=== PATIENT | male | born 1975 | race Caucasian/White ===

== ENCOUNTER 2021-10-14 19:42 | Emergency (ER) | payer BC ==
--- NOTE | 2021-10-14 20:00 | ERPHSYRPT ---
- History of Present Illness Time Seen by Provider: 10/14/21 20:00 Source: patient Exam Limitations: no limitations Physician History: This is a 46-year-old white male patient of Dr. Rios Ramsay who has a history of hypertension on amlodipine and metoprolol which he takes at night and presents with some mild dizziness and mild headache. He also, in the last few days has had intermittent fevers myalgias and arthralgias. He has had no vomiting and no diarrhea. He has no known exposure to anyone with viral illnesses. He last took daytime Tylenol combination cold and flu medications in approximately 3 PM. He presents with a fever of 99.9 F. Timing/Duration: day(s) (3) Quality: aching Head Pain Location: global Severity of Pain-Max: moderate Severity of Pain-Current: mild Recent Head Trauma: no recent headache/trauma Associated Symptoms: dizziness (Mild), fever/chills, No nausea/vomiting, No neck pain, No seizures, No sensitive to light, No stiff neck, No trouble walking, No visual disturbance Previous symptoms: no prior history Allergies/Adverse Reactions: No Known Drug Allergies Allergy (Unverified 10/14/21 19:49) Travel Risk - International Travel Have you traveled outside of the country in past 3 weeks: No - Coronavirus Screening Are you exhibiting any of the following symptoms?: Yes Symptoms: Fever, Headaches/Body Aches/Fatigue Close contact with a COVID-19 positive Pt in past 14-21 Days: No - Review of Systems Constitutional: Fever, Weakness Eyes: No Symptoms Ears, Nose, & Throat: No Symptoms Respiratory: No Symptoms Cardiac: No Symptoms Abdominal/Gastrointestinal: No Symptoms Genitourinary Symptoms: No Symptoms Musculoskeletal: Arthralgias, Myalgias Skin: No Symptoms Neurological: Headache Psychological: No Symptoms Endocrine: No Symptoms Hematologic/Lymphatic: No Symptoms Immunological/Allergic: No Symptoms All Other Systems: Reviewed and Negative - Past Medical History Pertinent Past Medical History: Yes - Past Surgical History Past Surgical History: Yes - Nursing Vital Signs Nursing Vital Signs: Initial Vital Signs Temperature 99.9 F 10/14/21 19:50 Pulse Rate 126 H 10/14/21 19:50 Respiratory Rate 18 10/14/21 19:50 Blood Pressure 165/96 10/14/21 19:50 O2 Sat by Pulse Oximetry 97 10/14/21 19:50 Pain Scale Pain Intensity 5 - Physical Exam General Appearance: no apparent distress, alert, anxiety, obese Eye Exam: PERRL/EOMI, eyes nml inspection Ears, Nose, Throat Exam: normal ENT inspection, moist mucous membranes Neck Exam: normal inspection, non-tender, supple, full range of motion Respiratory Exam: normal breath sounds, lungs clear, airway intact, No chest tenderness, No respiratory distress Cardiovascular Exam: tachycardia Back Exam: normal inspection, normal range of motion, No CVA tenderness, No vertebral tenderness Extremity Exam: normal inspection, normal range of motion, pelvis stable Mental Status Exam: alert, 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 There is no acute ischemic changes on today's EKG.) Ordered Tests: Active Orders 24 hr Category Date Time Status Director Of Property Management STAT Care 10/14/21 20:10 Active EKG-ER Only STAT Care 10/14/21 20:09 Active IV Insertion STAT Care 10/14/21 20:09 Active Isolation, Initiate & Maintain STAT Care 10/14/21 20:10 Active CHEST 1 VIEW (PORTABLE) Stat Exams 10/14/21 20:10 Completed CHEST WITH CONTRAST [CT] Stat Exams 10/14/21 21:14 Taken BLOOD CULTURE Stat Lab 10/14/21 20:42 Received CBC W DIFF Stat Lab 10/14/21 20:02 Completed CMP Stat Lab 10/14/21 20:02 Completed D-DIMER QUANTITATIVE Stat Lab 10/14/21 20:02 Completed Ferritin Stat Lab 10/14/21 19:42 Completed INFLUENZA A+B JAYNA Stat Lab 10/14/21 20:42 Completed LDH-LACTATE DEHYDROGENASE Stat Lab 10/14/21 20:02 Completed Lactic Acid Stat Lab 10/14/21 20:41 Completed Hardy Screen Stat Lab 10/14/21 20:02 Completed NT PRO BNP Stat Lab 10/14/21 20:02 Completed PROTIME WITH INR Stat Lab 10/14/21 20:02 Completed TROPONIN Q3H Lab 10/14/21 20:15 Completed TROPONIN Q3H Lab 10/14/21 23:15 Ordered TROPONIN Q3H Lab 10/15/21 02:15 Ordered TROPONIN Q3H Lab 10/15/21 05:15 Ordered TROPONIN Q3H Lab 10/15/21 08:15 Ordered Medication Summary Discontinued Medications Generic Name Dose Route Start Last Admin Trade Name Reena PRN Reason Stop Dose Admin Hydrocodone Bitart/Acetaminophen 10 ml 10/14/21 20:11 10/14/21 20:17 Hydrocodone/Acetaminophen 5 Ml Udcup PO 10/14/21 20:12 10 ml STAT STA Administration Hydrocodone Bitart/Acetaminophen Confirm 10/14/21 20:15 Hydrocodone/Acetaminophen 5 Ml Udcup Administered 10/14/21 20:16 Dose 10 ml .ROUTE .STK-MED ONE Sodium Chloride 1,000 mls @ 999 mls/hr 10/14/21 20:09 10/14/21 21:17 Sodium Chloride 0.9% 1000 Ml IV 10/14/21 21:09 Infused .Q1H1M STA Infusion Sodium Chloride Confirm 10/14/21 20:15 Sodium Chloride 0.9% 1000 Ml Administered 10/14/21 20:16 Dose 1,000 mls @ ud .ROUTE .STK-MED ONE Ibuprofen 600 mg 10/14/21 20:11 10/14/21 20:17 Ibuprofen 600 Mg Tablet PO 10/14/21 20:12 600 mg STAT ONE Administration Ibuprofen Confirm 10/14/21 20:15 Ibuprofen 600 Mg Tablet Administered 10/14/21 20:16 Dose 600 mg .ROUTE .STK-MED ONE Metoprolol Tartrate 5 mg 10/14/21 20:29 10/14/21 20:32 Metoprolol Tartrate 5 Mg/5 Ml Injection IV 10/14/21 20:30 5 mg STAT ONE Administration Metoprolol Tartrate Confirm 10/14/21 20:31 Metoprolol Tartrate 5 Mg/5 Ml Injection Administered 10/14/21 20:32 Dose 5 mg IV .STK-MED ONE Lab/Rad Data: Laboratory Result Diagrams 10/14/21 20:02 10/14/21 20:02 Laboratory Results 10/14/21 10/14/21 10/14/21 Range/Units 20:42 20:42 20:41 WBC (4.0-10.5) K/mm3 RBC (4.1-5.6) M/mm3 Hgb (12.5-18.0) gm/dl Hct (42-50) % MCV (78-100) fl MCH (26-32) pg MCHC (32-36) g/dl RDW (11.5-14.0) % Plt Count (150-450) K/mm3 MPV (7.5-11.0) fl Gran % (36.0-66.0) % Eos # (Auto) (0-0.5) Absolute Lymphs (auto) (1.0-4.6) Absolute Monos (auto) (0.0-1.3) Lymphocytes % (24.0-44.0) % Monocytes % (0.0-12.0) % Eosinophils % (0.00-5.0) % Basophils % (0.0-0.4) % Absolute Granulocytes (1.4-6.9) Basophils # (0-0.4) PT (9.4-12.5) SECONDS INR (0.8-3.0) D-Dimer (215-500) ng/mL Sodium (137-145) mmol/L Potassium (3.5-5.1) mmol/L Chloride (98-107) mmol/L Carbon Dioxide (22-30) mmol/L Anion Gap (5-15) MEQ/L BUN (9-20) mg/dL Creatinine (0.66-1.25) mg/dL Estimated GFR ML/MIN Glucose (74-106) mg/dL Lactic Acid 1.5 (0.4-2.0) Calcium (8.4-10.2) mg/dL Ferritin (17.9-464) ng/mL Total Bilirubin (0.2-1.3) mg/dL AST (17-59) U/L ALT (0-50) U/L Alkaline Phosphatase (38-126) U/L Lactate Dehydrogenase (120-246) U/L Troponin I (0.000-0.034) ng/mL NT-Pro-B Natriuret Pep (0-450) pg/mL Serum Total Protein (6.3-8.2) g/dL Albumin (3.5-5.0) g/dL Monoscreen (Negative) Influenza Type A Ag NEGATIVE (NEGATIVE) Influenza Type B Ag NEGATIVE (NEGATIVE) Group A Strep Antibody NOT DETECTED (NEGATIVE) 10/14/21 10/14/21 10/14/21 Range/Units 20:15 20:02 20:02 WBC (4.0-10.5) K/mm3 RBC (4.1-5.6) M/mm3 Hgb (12.5-18.0) gm/dl Hct (42-50) % MCV (78-100) fl MCH (26-32) pg MCHC (32-36) g/dl RDW (11.5-14.0) % Plt Count (150-450) K/mm3 MPV (7.5-11.0) fl Gran % (36.0-66.0) % Eos # (Auto) (0-0.5) Absolute Lymphs (auto) (1.0-4.6) Absolute Monos (auto) (0.0-1.3) Lymphocytes % (24.0-44.0) % Monocytes % (0.0-12.0) % Eosinophils % (0.00-5.0) % Basophils % (0.0-0.4) % Absolute Granulocytes (1.4-6.9) Basophils # (0-0.4) PT 13.2 H (9.4-12.5) SECONDS INR 1.12 (0.8-3.0) D-Dimer 1372 H* (215-500) ng/mL Sodium (137-145) mmol/L Potassium (3.5-5.1) mmol/L Chloride (98-107) mmol/L Carbon Dioxide (22-30) mmol/L Anion Gap (5-15) MEQ/L BUN (9-20) mg/dL Creatinine (0.66-1.25) mg/dL Estimated GFR ML/MIN Glucose (74-106) mg/dL Lactic Acid (0.4-2.0) Calcium (8.4-10.2) mg/dL Ferritin (17.9-464) ng/mL Total Bilirubin (0.2-1.3) mg/dL AST (17-59) U/L ALT (0-50) U/L Alkaline Phosphatase (38-126) U/L Lactate Dehydrogenase (120-246) U/L Troponin I < 0.012 (0.000-0.034) ng/mL NT-Pro-B Natriuret Pep (0-450) pg/mL Serum Total Protein (6.3-8.2) g/dL Albumin (3.5-5.0) g/dL Monoscreen NEGATIVE (Negative) Influenza Type A Ag (NEGATIVE) Influenza Type B Ag (NEGATIVE) Group A Strep Antibody (NEGATIVE) 10/14/21 10/14/21 10/14/21 Range/Units 20:02 20:02 19:42 WBC 9.0 (4.0-10.5) K/mm3 RBC 4.97 (4.1-5.6) M/mm3 Hgb 14.4 (12.5-18.0) gm/dl Hct 44.5 (42-50) % MCV 89.5 (78-100) fl MCH 29.0 (26-32) pg MCHC 32.4 (32-36) g/dl RDW 13.8 (11.5-14.0) % Plt Count 262 (150-450) K/mm3 MPV 10.8 (7.5-11.0) fl Gran % 88.2 H (36.0-66.0) % Eos # (Auto) 0.06 (0-0.5) Absolute Lymphs (auto) 0.54 L (1.0-4.6) Absolute Monos (auto) 0.45 (0.0-1.3) Lymphocytes % 6.0 L (24.0-44.0) % Monocytes % 5.0 (0.0-12.0) % Eosinophils % 0.7 (0.00-5.0) % Basophils % 0.1 (0.0-0.4) % Absolute Granulocytes 7.94 H (1.4-6.9) Basophils # 0.01 (0-0.4) PT (9.4-12.5) SECONDS INR (0.8-3.0) D-Dimer (215-500) ng/mL Sodium 134 L (137-145) mmol/L Potassium 3.9 (3.5-5.1) mmol/L Chloride 102 (98-107) mmol/L Carbon Dioxide 24 (22-30) mmol/L Anion Gap 11.9 (5-15) MEQ/L BUN 13 (9-20) mg/dL Creatinine 0.94 (0.66-1.25) mg/dL Estimated GFR > 60.0 ML/MIN Glucose 105 (74-106) mg/dL Lactic Acid (0.4-2.0) Calcium 8.8 (8.4-10.2) mg/dL Ferritin 116 (17.9-464) ng/mL Total Bilirubin 0.80 (0.2-1.3) mg/dL AST 46 (17-59) U/L ALT 29 (0-50) U/L Alkaline Phosphatase 85 (38-126) U/L Lactate Dehydrogenase 235 (120-246) U/L Troponin I (0.000-0.034) ng/mL NT-Pro-B Natriuret Pep 28.0 (0-450) pg/mL Serum Total Protein 7.4 (6.3-8.2) g/dL Albumin 4.1 (3.5-5.0) g/dL Monoscreen (Negative) Influenza Type A Ag (NEGATIVE) Influenza Type B Ag (NEGATIVE) Group A Strep Antibody (NEGATIVE) - Progress Progress: improved, re-examined Air Movement: good Progress Note: 10/14/21 22:33 CAT scan of the chest with contrast shows no evidence of pulmonary embolus. There is no evidence of any acute pulmonary pathology. 10/14/21 22:39 Chest x-ray shows no acute cardiopulmonary process. 10/14/21 22:41 Medical decision making: This patient is had spiking fevers over the last few days. The patient likely has viral illness. However, these tests have returned negative including several Covid test that have been negative. I will treat hi roly for bacterial upper respiratory infection with Rocephin intravenously followed by azithromycin. He will follow up with his primary care physician for further management. Blood Culture(s) Obtained: Yes Antibiotics given: Yes Counseled pt/family regarding: lab results, diagnosis, need for follow-up, rad results - Departure Departure Disposition: Home Clinical Impression: Fever, Upper respiratory infection Condition: Stable Critical Care Time: No Referrals: SB ZARATE [Primary Care Provider] - Follow up/PCP as directed Additional Instructions: Take medication as prescribed. Use Tylenol and ibuprofen for pain control and fever control. Follow-up with your primary care physician for persistent symptoms. Prescriptions: Azithromycin 250 mg [Zithromax 250 MG TABLET] 250 mg PO ZPACK #6 tablet
[2021-10-14 20:05] VITALS: O2SAT 97
[2021-10-14] MEDS ORDERED: Sodium Chloride 0.9% 1000 ML 1,000 ML IV STA (20:09)
[2021-10-14] MEDS ORDERED: HYDROCODONE-ACETAMIN 2.5-108/5 ML SOLUTION PO STA (20:11)
[2021-10-14] MEDS ORDERED: MOTRIN 600 MG PO ONE (20:11)
[2021-10-14] MEDS ORDERED: Sodium Chloride 0.9% 1000 ML 1,000 ML ONE (20:15)
[2021-10-14] MEDS ORDERED: HYDROCODONE-ACETAMIN 2.5-108/5 ML SOLUTION ONE (20:15)
[2021-10-14] MEDS ORDERED: MOTRIN 600 MG ONE (20:15)
[2021-10-14] MEDS ORDERED: LOPRESSOR 5 MG/5 ML INJECTION IV ONE ×2 (20:29→20:31)
[2021-10-14 20:47] LABS: Absolute Neutrophil Ct (ANC) 7.94 (1.4-6.9); Basophil (Absolute #) 0.01 (0-0.4); Eosinophil % 0.7 % (0.00-5.0); Eosinophil (Absolute #) 0.06 (0-0.5); Hematocrit 44.5 % (42-50); Hemoglobin 14.4 gm/dl (12.5-18.0); Lymphocyte (Absolute #) 0.54 (1.0-4.6); Mean Cell Volume 89.5 fl (78-100); Mean Corpuscular Hgb Concent. 32.4 g/dl (32-36); Mean Platelet Volume 10.8 fl (7.5-11.0); Monocyte (Absolute #) 0.45 (0.0-1.3); Neutrophil % 88.2 % (36.0-66.0); Platelet Count 262 K/mm3 (150-450); Red Blood Count 4.97 M/mm3 (4.1-5.6); Red Cell Distribution Width 13.8 % (11.5-14.0)
[2021-10-14 20:58] LABS: INR 1.12 (0.8-3.0); PROTIME 13.2 SECONDS (9.4-12.5)
[2021-10-14 21:10] LABS: ALBUMIN 4.1 g/dL (3.5-5.0); ALKALINE PHOSPHATASE 85 U/L (38-126); ANION GAP 11.9 MEQ/L (5-15); BLOOD UREA NITROGEN 13 mg/dL (9-20); CHLORIDE 102 mmol/L (98-107); Calcium 8.8 mg/dL (8.4-10.2); Carbon Dioxide 24 mmol/L (22-30); Creatinine 1 0.94 mg/dL (0.66-1.25); EST GLOMERULAR FILTRATION RATE > 60.0 ML/MIN; Glucose 105 mg/dL (74-106); LDH-LACTATE DEHYDROGENASE 235 U/L (120-246); Potassium 3.9 mmol/L (3.5-5.1); SGOT/AST 46 U/L (17-59); SGPT/ALT 29 U/L (0-50); SODIUM 134 mmol/L (137-145); Total Protein 7.4 g/dL (6.3-8.2)
[2021-10-14 21:13] LABS: INFLUENZA A NEGATIVE (NEGATIVE); INFLUENZA B NEGATIVE (NEGATIVE)
--- NOTE | 2021-10-14 21:56 | XRAY ---
Indication: Fever. Comparison: None Portable chest is clear. Heart not enlarged for AP portable technique. Bony thorax intact with mild degenerative changes. Impression: Nonacute chest with chronic bony findings.
[2021-10-14] MEDS ORDERED: ROCEPHIN 1 Gm-D5w 50 ml Bag** 1 G/50 ML IVPB IV STA (22:43)
[2021-10-14] MEDS ORDERED: ROCEPHIN 1 Gm-D5w 50 ml Bag** 1 G/50 ML IVPB IV ONE (22:47)
[2021-10-14 23:06] VITALS: BP 126/74; PULSE 80
--- NOTE | 2021-10-15 08:03 | XRAY ---
Indication: Fever, short of breath, and elevated d-dimer. Multiple contiguous axial images obtained through the chest using 80 cc Isovue 370 contrast and PE protocol. Comparison: None There is suboptimal opacification of the pulmonary arteries limiting evaluation for pulmonary embolus. No obvious pulmonary embolus. Heart is not enlarged. Aorta is normal in course and caliber. A few small mediastinal and left hilar calcified nodes. No pathologic mediastinal/hilar lymphadenopathy. Lungs are inflated and clear. Bony thorax intact with mild degenerative changes throughout the spine. Limited upper abdomen demonstrates fatty liver, tiny gallstones/gravel, and splenic calcified granulomas. Impression: 1. Pulmonary embolus evaluation limited due to suboptimal contrast opacification. No obvious pulmonary embolus. 2. No acute cardiopulmonary abnormalities. 3. Tiny gallstones/gravel better evaluated with sonogram if clinically warranted. 4. Incidental fatty liver and old granulomatous disease. Comment: Preliminary interpretation made by [facility]. No critical discrepancy.
== END 2021-10-14 23:11 | disposition home or self-care (01) ==
LOC: ED 19:42
DX: J06.9 Acute upper respiratory infection, unspecified (principal); R50.9 Fever, unspecified; M79.10 Myalgia, unspecified site; I10 Essential (primary) hypertension; R42 Dizziness and giddiness
CPT/HCPCS: 36000; 36415; 71045; 71260; 80053; 82728; 83605; 83615; 83880; 84484; 85025; 85379; 85610; 86308; 87040; 87400; 87651; 93005; 93041; 96360; 96374; 99285; J0696; A9270-GY

== ENCOUNTER 2021-10-16 15:36 | Emergency (ER) | payer BC ==
[2021-10-16] MEDS ORDERED: Hydromorphone 1 mg/ml Injection IV ONE (15:58)
[2021-10-16] MEDS ORDERED: Zofran 4 MG/2 ML VIAL IV ONE (15:58)
[2021-10-16] MEDS ORDERED: Sodium Chloride 0.9% 1000 ML 1,000 ML IV STA (15:58)
[2021-10-16] MEDS ORDERED: TORAdol 30 mg Injection IV ONE (15:58)
[2021-10-16 16:20] LABS: Absolute Neutrophil Ct (ANC) 4.43 (1.4-6.9); Basophil (Absolute #) 0.01 (0-0.4); Eosinophil (Absolute #) 0.13 (0-0.5); Hematocrit 43.9 % (42-50); Hemoglobin 13.9 gm/dl (12.5-18.0); Lymphocytes % 24.4 % (24.0-44.0); Mean Cell Volume 90.5 fl (78-100); Mean Corpuscular Hemoglobin 28.7 pg (26-32); Mean Corpuscular Hgb Concent. 31.7 g/dl (32-36); Mean Platelet Volume 10.1 fl (7.5-11.0); Monocytes % 6.1 % (0.0-12.0); Neutrophil % 67.3 % (36.0-66.0); Platelet Count 309 K/mm3 (150-450); Red Blood Count 4.85 M/mm3 (4.1-5.6); Red Cell Distribution Width 13.8 % (11.5-14.0); White Blood Count 6.6 K/mm3 (4.0-10.5)
[2021-10-16 16:32] LABS: ALBUMIN 4.2 g/dL (3.5-5.0); ALKALINE PHOSPHATASE 83 U/L (38-126); ANION GAP 12.3 MEQ/L (5-15); BLOOD UREA NITROGEN 11 mg/dL (9-20); CHLORIDE 104 mmol/L (98-107); Calcium 8.6 mg/dL (8.4-10.2); Carbon Dioxide 25 mmol/L (22-30); Creatinine 1 0.98 mg/dL (0.66-1.25); EST GLOMERULAR FILTRATION RATE > 60.0 ML/MIN; Glucose 100 mg/dL (74-106); LIPASE 36 U/L (23-300); Potassium 3.6 mmol/L (3.5-5.1); SGOT/AST 50 U/L (17-59); SGPT/ALT 71 U/L (0-50); SODIUM 137 mmol/L (137-145); Total Protein 7.7 g/dL (6.3-8.2)
[2021-10-16] MEDS ORDERED: Sodium Chloride 0.9% 1000 ML 1,000 ML ONE (16:37)
[2021-10-16] MEDS ORDERED: Hydromorphone 1 mg/ml Injection ONE (16:37)
[2021-10-16] MEDS ORDERED: TORAdol 30 mg Injection ONE (16:37)
[2021-10-16] MEDS ORDERED: Zofran 4 MG/2 ML VIAL ONE (16:37)
[2021-10-16 17:29] VITALS: BP 119/76; PULSE 72; O2SAT 97
[2021-10-16 17:29] LABS: Appearance CLEAR (CLEAR); Bilirubin NEGATIVE (NEGATIVE); Blood NEGATIVE Ery/ul (0-5); Glucose NEGATIVE (NEGATIVE); Ketones NEGATIVE (NEGATIVE); Leukocyte Esterase NEGATIVE (NEGATIVE); Nitrite NEGATIVE (NEGATIVE); Protein,Urine Dip NEGATIVE (Negative); Specific Gravity 1.035 (1.005-1.025); Urobilinogen NEGATIVE mg/dL (0-1); WBC 0-2 /HPF (0-5)
--- NOTE | 2021-10-16 17:48 | ERPHSYRPT ---
- History of Present Illness Time Seen by Provider: 10/16/21 15:46 Source: patient Exam Limitations: no limitations Patient Subjective Stated Complaint: Patient states he "just doesnt feel well" States he was here radha night and talked to PCP, but symptoms persisted. 10/12- body chills, stomach pain, diarrhea covid tested negative 102 fever 10/13/21. He is weak, muscle aches. COVID and flu retested and were negative. States he has pressure and pain from diapraghm down to abdomen and lower back. States ears are plugged and is also having jaw pain. Triage Nursing Assessment: Patient to ED with abdominal pain. States he has had 3 doses of augmentin. Patient states he is having abdominal pain.Abdomen tender, soft, bowel sounds active x4. Physician History: Patient here with nonspecific abdominal pain. Seen 2 days ago. Had a full negative cardiac chest work-up at that point time. This included a CT scan of the chest. No other falls or trauma. Patient sent back here because he had a continued fever at home. Patient has been on Augmentin. Some low back pain. They are most concerned about potential UTI. Timing/Duration: day(s) Severity: mild Modifying Factors: Improves With: other Associated Symptoms: denies symptoms Allergies/Adverse Reactions: No Known Drug Allergies Allergy (Verified 10/16/21 16:01) Home Medications: Amox Tr/Potass Clav. 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: [employer] - Review of Systems Constitutional: No Fever, No Chills Eyes: No Symptoms Ears, Nose, & Throat: No Symptoms Respiratory: No Cough, No Dyspnea Cardiac: No Chest Pain, No Edema, No Syncope Abdominal/Gastrointestinal: Abdominal Pain, Nausea, No Vomiting, No Diarrhea Genitourinary Symptoms: No Dysuria Musculoskeletal: No Back Pain, No Neck Pain Skin: No Rash Neurological: No Dizziness, No Focal Weakness, No Sensory Changes Psychological: No Symptoms Endocrine: No Symptoms All Other Systems: Reviewed and Negative - Past Medical History Pertinent Past Medical History: Yes Neurological History: No Pertinent History ENT History: No Pertinent History Cardiac History: Hypertension Respiratory History: No Pertinent History Endocrine Medical History: No Pertinent History Musculoskeletal History: No Pertinent History GI Medical History: No Pertinent History History: No Pertinent History Psycho-Social History: No Pertinent History Male Reproductive Disorders: No Pertinent History - Past Surgical History Past Surgical History: Yes - Social History Smoking Status: Never smoker Exposure to second hand smoke: No Drug Use: none Patient Lives Alone: No - Nursing Vital Signs Nursing Vital Signs: Initial Vital Signs Temperature 98 F 10/16/21 15:47 Pulse Rate 104 H 10/16/21 15:47 Respiratory Rate 22 10/16/21 15:47 Blood Pressure 169/94 10/16/21 15:47 O2 Sat by Pulse Oximetry 100 10/16/21 15:47 Pain Scale Pain Intensity 5 - Physical Exam General Appearance: no apparent distress, alert Eye Exam: PERRL/EOMI, eyes nml inspection Ears, Nose, Throat Exam: normal ENT inspection, TMs normal, pharynx normal, moist mucous membranes Neck Exam: normal inspection, non-tender, supple, full range of motion Respiratory Exam: normal breath sounds, lungs clear, No respiratory distress Cardiovascular Exam: regular rate/rhythm, normal heart sounds, normal peripheral pulses Gastrointestinal/Abdomen Exam: soft, normal bowel sounds, No tenderness, No mass Back Exam: normal inspection, normal range of motion, No CVA tenderness, No vertebral tenderness Extremity Exam: normal inspection, normal range of motion, pelvis stable Neurologic Exam: alert, oriented x 3, cooperative, normal mood/affect, nml cerebellar function, nml station & gait, sensation nml, No motor deficits Skin Exam: normal color, warm, dry, No rash Lymphatic Exam: No adenopathy SpO2: 97 - Course Nursing assessment & vital signs reviewed: Yes EKG Interpreted by Me: Sinus Rhythm Ordered Tests: Active Orders 24 hr Category Date Time Status EKG-ER Only STAT Care 10/16/21 15:58 Completed IV Insertion STAT Care 10/16/21 15:58 Completed NPO (ED) STAT Care 10/16/21 15:58 Completed ABDOMEN AND PELVIS W CONTRAST [CT] Stat Exams 10/16/21 16:49 Taken CBC W DIFF Stat Lab 10/16/21 15:58 Completed CMP Stat Lab 10/16/21 16:16 Completed LIPASE Stat Lab 10/16/21 16:16 Completed Lactic Acid Stat Lab 10/16/21 16:10 Completed TROPONIN Q3H Lab 10/16/21 16:16 Completed TROPONIN Q3H Lab 10/16/21 19:00 Ordered TROPONIN Q3H Lab 10/16/21 22:00 Ordered UA W/RFX UR CULTURE Stat Lab 10/16/21 17:23 Completed Medication Summary Discontinued Medications Generic Name Dose Route Start Last Admin Trade Name Freq PRN Reason Stop Dose Admin Hydromorphone HCl 1 mg 10/16/21 15:58 10/16/21 16:39 Hydromorphone 1 Mg/1ml Inj 1 Mg/Ml Syringe IV 10/16/21 15:59 1 mg STAT ONE Administration Hydromorphone HCl Confirm 10/16/21 16:37 Hydromorphone 1 Mg/1ml Inj 1 Mg/Ml Syringe Administered 10/16/21 16:38 Dose 1 mg .ROUTE .STK-MED ONE Sodium Chloride 1,000 mls @ 999 mls/hr 10/16/21 15:58 10/16/21 17:48 Sodium Chloride 0.9% 1000 Ml IV 10/16/21 16:58 Infused .Q1H1M STA Infusion Sodium Chloride Confirm 10/16/21 16:37 Sodium Chloride 0.9% 1000 Ml Administered 10/16/21 16:38 Dose 1,000 mls @ ud .ROUTE .STK-MED ONE Ketorolac Tromethamine 30 mg 10/16/21 15:58 10/16/21 16:40 Ketorolac Tromethamine 30 Mg/Ml Inj IV 10/16/21 15:59 30 mg STAT ONE Administration Ketorolac Tromethamine Confirm 10/16/21 16:37 Ketorolac Tromethamine 30 Mg/Ml Inj Administered 10/16/21 16:38 Dose 30 mg .ROUTE .STK-MED ONE Ondansetron HCl 4 mg 10/16/21 15:58 10/16/21 16:40 Ondansetron Hcl 4 Mg/2 Ml Vial IV 10/16/21 15:59 4 mg STAT ONE Administration Ondansetron HCl Confirm 10/16/21 16:37 Ondansetron Hcl 4 Mg/2 Ml Vial Administered 10/16/21 16:38 Dose 4 mg .ROUTE .STK-MED ONE Lab/Rad Data: Laboratory Result Diagrams 10/16/21 15:58 10/16/21 16:16 Laboratory Results 10/16/21 10/16/21 10/16/21 Range/Units 17:23 16:16 16:16 WBC (4.0-10.5) K/mm3 RBC (4.1-5.6) M/mm3 Hgb (12.5-18.0) gm/dl Hct (42-50) % MCV (78-100) fl MCH (26-32) pg MCHC (32-36) g/dl RDW (11.5-14.0) % Plt Count (150-450) K/mm3 MPV (7.5-11.0) fl Gran % (36.0-66.0) % Eos # (Auto) (0-0.5) Absolute Lymphs (auto) (1.0-4.6) Absolute Monos (auto) (0.0-1.3) Lymphocytes % (24.0-44.0) % Monocytes % (0.0-12.0) % Eosinophils % (0.00-5.0) % Basophils % (0.0-0.4) % Absolute Granulocytes (1.4-6.9) Basophils # (0-0.4) Sodium 137 (137-145) mmol/L Potassium 3.6 (3.5-5.1) mmol/L Chloride 104 (98-107) mmol/L Carbon Dioxide 25 (22-30) mmol/L Anion Gap 12.3 (5-15) MEQ/L BUN 11 (9-20) mg/dL Creatinine 0.98 (0.66-1.25) mg/dL Estimated GFR > 60.0 ML/MIN Glucose 100 (74-106) mg/dL Lactic Acid (0.4-2.0) Calcium 8.6 (8.4-10.2) mg/dL Total Bilirubin 0.50 (0.2-1.3) mg/dL AST 50 (17-59) U/L ALT 71 H (0-50) U/L Alkaline Phosphatase 83 (38-126) U/L Troponin I < 0.012 (0.000-0.034) ng/mL Serum Total Protein 7.7 (6.3-8.2) g/dL Albumin 4.2 (3.5-5.0) g/dL Lipase 36 (23-300) U/L Urine Color STRAW (YELLOW) Urine Appearance CLEAR (CLEAR) Urine pH 6.0 (5-6) Ur Specific [place] 1.035 (1.005-1.025) Urine Protein NEGATIVE (Negative) Urine Ketones NEGATIVE (NEGATIVE) Urine Blood NEGATIVE (0-5) Jose/ul Urine Nitrite NEGATIVE (NEGATIVE) Urine Bilirubin NEGATIVE (NEGATIVE) Urine Urobilinogen NEGATIVE (0-1) mg/dL Ur Leukocyte Esterase NEGATIVE (NEGATIVE) Urine WBC (Auto) 0-2 (0-5) /HPF Urine RBC (Auto) NONE (0-2) /HPF U Epithel Cells (Auto) NONE (FEW) /HPF Urine Bacteria (Auto) NONE (NEGATIVE) /HPF Urine Culture Reflexed NO (NO) Urine Glucose NEGATIVE (NEGATIVE) mg/dL 10/16/21 10/16/21 Range/Units 16:10 15:58 WBC 6.6 (4.0-10.5) K/mm3 RBC 4.85 (4.1-5.6) M/mm3 Hgb 13.9 (12.5-18.0) gm/dl Hct 43.9 (42-50) % MCV 90.5 (78-100) fl MCH 28.7 (26-32) pg MCHC 31.7 L (32-36) g/dl RDW 13.8 (11.5-14.0) % Plt Count 309 (150-450) K/mm3 MPV 10.1 (7.5-11.0) fl Gran % 67.3 H (36.0-66.0) % Eos # (Auto) 0.13 (0-0.5) Absolute Lymphs (auto) 1.60 (1.0-4.6) Absolute Monos (auto) 0.40 (0.0-1.3) Lymphocytes % 24.4 (24.0-44.0) % Monocytes % 6.1 (0.0-12.0) % Eosinophils % 2.0 (0.00-5.0) % Basophils % 0.2 (0.0-0.4) % Absolute Granulocytes 4.43 (1.4-6.9) Basophils # 0.01 (0-0.4) Sodium (137-145) mmol/L Potassium (3.5-5.1) mmol/L Chloride (98-107) mmol/L Carbon Dioxide (22-30) mmol/L Anion Gap (5-15) MEQ/L BUN (9-20) mg/dL Creatinine (0.66-1.25) mg/dL Estimated GFR ML/MIN Glucose (74-106) mg/dL Lactic Acid 0.8 (0.4-2.0) Calcium (8.4-10.2) mg/dL Total Bilirubin (0.2-1.3) mg/dL AST (17-59) U/L ALT (0-50) U/L Alkaline Phosphatase (38-126) U/L Troponin I (0.000-0.034) ng/mL Serum Total Protein (6.3-8.2) g/dL Albumin (3.5-5.0) g/dL Lipase (23-300) U/L Urine Color (YELLOW) Urine Appearance (CLEAR) Urine pH (5-6) Ur Specific [place] (1.005-1.025) Urine Protein (Negative) Urine Ketones (NEGATIVE) Urine Blood (0-5) Jose/ul Urine Nitrite (NEGATIVE) Urine Bilirubin (NEGATIVE) Urine Urobilinogen (0-1) mg/dL Ur Leukocyte Esterase (NEGATIVE) Urine WBC (Auto) (0-5) /HPF Urine RBC (Auto) (0-2) /HPF U Epithel Cells (Auto) (FEW) /HPF Urine Bacteria (Auto) (NEGATIVE) /HPF Urine Culture Reflexed (NO) Urine Glucose (NEGATIVE) mg/dL - Progress Progress: improved Progress Note: 10/16/21 18:09 differential diagnosis includes kidney stone, compression fracture, infection, UTI, triple AAA - basic labs including: CBC, lipase, CMP, UA - insert IV for fluids, pain meds, nausea control - consider imaging: CT ab/pelvis Patient feels improved with medication. Labs and CT demonstrate no obvious pathology tonight. Patient feeling overall improved. No signs of a UTI. Will discharge patient home. Continue Augmentin. Return here for any new or changing symptoms. EKG and troponin negative. Plan of care was discussed with patient and all questions answered. The patient is agreeable to be discharged home and both verbal and printed discharge instructions were provided.The patient agreed to seek outpatient follow up as discussed. The patient was given strict instructions to return to the emergency department for worsening symptoms or any other emergent concerns. The patient verbalized understanding. - Departure Departure Disposition: Home Clinical Impression: Abdominal pain, Fever Condition: Stable Critical Care Time: No Referrals: SB ZARATE [Primary Care Provider] - Follow up/PCP as directed Instructions: Low Back Pain (DC)
--- NOTE | 2021-10-16 18:34 | XRAY ---
Indication: Back pain, diarrhea, and fever. Multiple contiguous axial images obtained through the abdomen and pelvis using 80 cc Isovue 370 contrast. Comparison: None CT chest reported 2 days ago. Stomach is markedly distended with food/fluid. Noncontrasted bowel loops appear nonobstructed. Normal appendix. Tiny gallstones/gravel near the neck of the gallbladder. Mild diffuse fatty liver. Tiny splenic calcified granulomas. Tiny mid abdomen mesenteric nodes with minimal stranding favoring adenitis. No free fluid/air. Remaining liver, gallbladder, pancreas, spleen, adrenal glands, kidneys, ureters, bladder, and aorta are unremarkable. No pathologic retroperitoneal lymphadenopathy. Osseous structures intact with mild degenerative changes throughout the thoracolumbar spine. No ventral or inguinal hernias. Impression: 1. Tiny gallstones/gravel. Sonogram may yield further information if clinically warranted. 2. Tiny mid abdomen mesenteric nodes with stranding favoring mesenteric adenitis. 3. Fatty liver, chronic bony findings, and old granulomatous disease. Comment: Preliminary interpretation made by [facility]. No critical discrepancy.
== END 2021-10-16 17:54 | disposition home or self-care (01) ==
LOC: ED 15:36
DX: R10.84 Generalized abdominal pain (principal); R50.9 Fever, unspecified; M54.50 Low back pain, unspecified; I10 Essential (primary) hypertension
CPT/HCPCS: 36000; 36415; 74177; 80053; 81001; 83605; 83690; 84484; 85025; 93005; 96360; 96374; 99284; J1170; J1885; J2405